=== PATIENT | female | born 1985 | race Caucasian/White ===

== ENCOUNTER → 2018-01-25 | Outpatient (CLI) | payer BC ==
[2018-01-25 17:47] LABS: Basophils % (A) 0 %; Eosinophils # (A) 0.2 k/uL (0-0.7); Eosinophils % (A) 2 %; HCT 40.9 % (34.0-46.0); HGB 13.4 gm/dL (11.4-16.0); Lymphocytes # (A) 2.7 k/uL (1.0-4.8); Lymphocytes % (A) 34 %; MCH 29.1 pg (25.0-35.0); MCHC 32.8 g/dL (31.0-37.0); MCV 88.5 fL (80.0-100.0); Mean Platelet Volume 6.6; Monocytes # (A) 0.3 k/uL (0-1.0); Monocytes % (A) 3 %; Neutrophils # (A) 4.8 k/uL (1.3-7.7); Neutrophils % (A) 59 %; Platelet Count 245 k/uL (150-450); RBC 4.62 m/uL (3.80-5.40); RDW 13.2 % (11.5-15.5); WBC 8.1 k/uL (3.8-10.6)
[2018-01-25 17:48] LABS: Blood Urea Nitrogen 23 mg/dL (7-17)
[2018-01-25 19:31] LABS: Erythrocyte Sedimentation Rate 7 mm/hr (0-20)
== END | disposition home or self-care (01) ==
LOC: LABWHC1 17:14
PROVIDERS: ATTEND Otolaryngology
DX: R21 Rash and other nonspecific skin eruption (principal)
CPT/HCPCS: 36415; 82565; 84520; 85025; 85652; 86038

== ENCOUNTER → 2019-01-14 | Outpatient (CLI) | payer BC ==
--- NOTE | 2019-01-14 19:37 | XR ---
EXAMINATION TYPE: XR cervical spine limited DATE OF EXAM: 01/14/2019 COMPARISON: NONE HISTORY: Pain TECHNIQUE: Four views are submitted. FINDINGS: The odontoid is intact. There are no compression deformities. The prevertebral soft tissue structur es are within normal limits. IMPRESSION: 1. No acute process. If symptoms persist MRI would be recommended.
--- NOTE | 2019-01-14 19:38 | XR ---
EXAMINATION TYPE: XR skull complete DATE OF EXAM: 01/14/2019 COMPARISON: NONE HISTORY: Pain TECHNIQUE: 4 views submitted FINDINGS: Osseous structures intact. No definite acute fracture. IMPRESSION: No acute osseous abnormality.
== END | disposition home or self-care (01) ==
LOC: RADXRMAIN 17:15
PROVIDERS: ATTEND Physician Assistant
DX: S09.90XA Unspecified injury of head, initial encounter (principal); M54.2 Cervicalgia
CPT/HCPCS: 70260; 72040

== ENCOUNTER → 2019-05-13 | Outpatient (CLI) | payer BC ==
--- NOTE | 2019-05-13 15:30 | US ---
EXAMINATION TYPE: US kidneys/renal and bladder DATE OF EXAM: 05/13/2019 COMPARISON: NONE CLINICAL HISTORY: N39.0 Urinary tract infection. Recurrent UTI, cardiac event monitor today. EXAM MEASUREMENTS: Right Kidney: 9.8 x 5.1 x 4.6 cm Left Kidney: 9.2 x 5.4 x 4.9 cm Post Void Residual Volume: 19.5 mL Right Kidney: No hydronephrosis or masses seen Left Kidney: No hydronephrosis or masses seen Bladder: wnl Bilateral Jets seen: yes Normal Post Void Residual: yes There is no evidence for hydronephrosis at this point in time. No nephrolithiasis is seen. No jaison s are identified. The urinary bladder is anechoic. Bilateral ureteral jets are seen. IMPRESSION: No hydronephrosis or nephrolithiasis. Urinary bladder appears anechoic and unremarkable.
== END | disposition home or self-care (01) ==
LOC: RADUSWWP 14:12
PROVIDERS: ATTEND Urology
DX: N39.0 Urinary tract infection, site not specified (principal); Z88.2 Allergy status to sulfonamides; Z91.013 Allergy to seafood
CPT/HCPCS: 76770

== ENCOUNTER → 2019-05-13 | Outpatient (CLI) | payer BC ==
--- NOTE | 2019-05-30 12:04 | EM ---
EVENT MONITOR A 14-day event monitor. There are multiple recordings available most of these are unremarkable sinus and some of them are sinus tachycardia. Then patient had some shortness of breath. Again, she was in sinus tachycardia and on auto capture, there was also sinus tachycardia with a rare isolated PVC. No significant arrhythmia was detected. Sinus rhythm and sinus tachycardia seems to be the predominant tracings available. IMPRESSION: Unremarkable event monitor with most recordings suggesting sinus rhythm or sinus tachycardia with one rare isolated PVC. MMODL / IJN: [id number] /
== END | disposition home or self-care (01) ==
LOC: RADECHMAIN 12:04
PROVIDERS: ATTEND Physician Assistant
DX: R55 Syncope and collapse (principal)
CPT/HCPCS: 93270; 93271

== ENCOUNTER 2020-11-23 06:05 | Inpatient (IN) | payer BC ==
[2020-11-15 15:37] VITALS: BMI 32.1
[2020-11-23] MEDS ORDERED: CITRIC ACID-SODIUM CITRATE 15 ML CUP PO ONE (06:14)
[2020-11-23] MEDS: LACTATED RINGERS 1,000 ML IV SCH ×3 (06:40→15:13)
[2020-11-23 06:51] LABS: Basophils % (A) 0 %; Eosinophils # (A) 0.2 k/uL (0-0.7); Eosinophils % (A) 1 %; HCT 35.6 % (34.0-46.0); HGB 12.4 gm/dL (11.4-16.0); Lymphocytes # (A) 2.5 k/uL (1.0-4.8); Lymphocytes % (A) 21 %; MCH 30.7 pg (25.0-35.0); MCHC 34.9 g/dL (31.0-37.0); MCV 88.1 fL (80.0-100.0); Mean Platelet Volume 7.3; Monocytes # (A) 0.5 k/uL (0-1.0); Monocytes % (A) 4 %; Neutrophils # (A) 8.7 k/uL (1.3-7.7); Neutrophils % (A) 73 %; Platelet Count 196 k/uL (150-450); RBC 4.04 m/uL (3.80-5.40); RDW 13.1 % (11.5-15.5)
[2020-11-23] MEDS ORDERED: MORPHINE SULFATE (PF) 0.3 MG/0.3 ML SYR ONE (08:00)
[2020-11-23] MEDS ORDERED: OXYTOCIN 10 UNIT/ML 1 ML VIAL ONE (08:00)
[2020-11-23] MEDS ORDERED: KETOROLAC 15 MG/ML 1 ML VIAL ONE (08:00)
[2020-11-23] MEDS ORDERED: ONDANSETRON 4 MG/2 ML VIAL ONE (08:00)
[2020-11-23] MEDS ORDERED: NALBUPHINE 10 MG/ML (1 ML AMP) ONE (08:00)
[2020-11-23] MEDS ORDERED: PHENYLEPHRINE-0.9% NACL SYG 1,000 MCG/10 ML SYRINGE ONE (08:00)
[2020-11-23] MEDS ORDERED: ZOLPIDEM 5 MG TAB PO PRN (08:40)
[2020-11-23] MEDS ORDERED: NALOXONE 0.4 MG/ML 1 ML VIAL IV PRN (08:40)
[2020-11-23] MEDS ORDERED: diphenhydrAMINE 50 MG/ML 1 ML VIAL IVP PRN ×2 (08:40)
[2020-11-23] MEDS ORDERED: diphenhydrAMINE 25 MG CAP PO PRN (08:40)
[2020-11-23] MEDS ORDERED: METOCLOPRAMIDE 5 MG/ML 2 ML VIAL IVP PRN (08:40)
[2020-11-23] MEDS ORDERED: diphenhydrAMINE 50 MG CAP PO PRN (08:40)
[2020-11-23] MEDS ORDERED: ONDANSETRON 4 MG/2 ML VIAL IVP PRN (08:40)
--- NOTE | 2020-11-23 08:43 | P.HPOB ---
History of Present Illness H&P Date: 11/23/20 Chief Complaint: repeat low transverse with TL 35 year old presents at 39 weeks 4 days for repeat low transverse with tubal ligation. Review of Systems All systems: negative Constitutional: Denies chills, Denies fever Eyes: denies blurred vision, denies pain Ears, nose, mouth and throat: Denies headache, Denies sore throat Cardiovascular: Denies chest pain, Denies shortness of breath Respiratory: Denies cough Gastrointestinal: Denies abdominal pain, Denies diarrhea, Denies nausea, Denies vomiting Genitourinary: Denies dysuria, Denies hematuria Musculoskeletal: Denies myalgias Integumentary: Denies pruritus, Denies rash Neurological: Denies numbness, Denies weakness Psychiatric: Denies anxiety, Denies depression Endocrine: Denies fatigue, Denies weight change Past Medical History Past Medical History: No Reported History 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 History of Any Multi-Drug Resistant Organisms: None Reported Past Surgical History: Section Past Anesthesia/Blood Transfusion Reactions: No Reported Reaction, Motion Sickne ss Past Psychological History: No Psychological Hx Reported Smoking Status: Former smoker Past Alcohol Use History: None Reported Past Drug Use History: None Reported - Past Family History Mother Family Medical History: Diabetes Mellitus Medications and Allergies Home Medications Medication Instructions Recorded Confirmed Type Acyclovir 400 mg PO DAILY PRN 11/15/20 11/15/20 History Ascorbic Acid/Elderberry Fruit 1 each PO DAILY 11/15/20 11/23/20 History [Elderberry-Vit C 50-100 mg Chw] Pnv No.95/Ferrous Fum/Folic AC 1 each PO DAILY 11/15/20 11/23/20 History [ Multivitamin Tablet] Zinc 17 mg PO DAILY 11/15/20 11/23/20 History Allergies Allergy/AdvReac Type Severity Reaction Status Date / Time Sulfa (Sulfonamide Allergy Unknown Verified 11/15/20 15:30 Antibiotics) sulfamethoxazole Allergy Rash/Hives Verified 11/23/20 06:11 [From Bactrim] trimethoprim [From Bactrim] Allergy Rash/Hives Verified 11/23/20 06:11 Exam Osteopathic Statement: *. No significant issues noted on an osteopathic structural exam other than those noted in the History and Physical/Consult. Vital Signs Temp Pulse Resp BP Pulse Ox 11/23/20 06:10 96.9 F L 114 H 16 125/75 98 Intake and Output 11/22/20 11/23/20 11/23/20 22:59 06:59 14:59 Other: Weight 85.275 kg Heart: Regular rate and rhythm Lungs: Clear to auscultation bilaterally Abdomen: Soft, nontender Extremities: Negative Homans sign Results Result Diagrams: 11/23/20 06:30 Abnormal Lab Results - Last 24 Hours (Table) 11/23/20 Range/Units 06:30 WBC 12.0 H (3.8-10.6) k/uL Neutrophils # 8.7 H (1.3-7.7) k/uL Assessment and Plan (1) Previous section Current Visit: Yes Status: Acute Code(s): Z98.891 - HISTORY OF UTERINE SCAR FROM PREVIOUS SURGERY SNOMED Code(s): 286911654 (2) Family planning Current Visit: Yes Status: Acute Code(s): Z30.09 - ENCOUNTER FOR OT GENERAL CNSL AND ADVICE ON CONTRACEPTION SNOMED Code(s): 555801662 Plan: 1. Repeat low transverse with tubal ligation
[2020-11-23] MEDS ORDERED: LACTATED RINGERS 1,000 ML IV SCH (08:45)
--- NOTE | 2020-11-23 08:45 | P.OP ---
Date of Procedure: 11/23/20 Preoperative Diagnosis: 1. at 39 weeks and 4 days 2. Previous section 3. Family planning Postoperative Diagnosis: 1. at 39 weeks and 4 days 2. Previous section 3. Family planning Procedure(s) Performed: Repeat low transverse with tubal ligation Anesthesia: spinal Surgeon: Jayleen Echevarria Beef Tagger #1: Pilo Fitch Estimated Blood Loss (ml): 400 IV fluids (ml): 1,000 Urine output (ml): 100 Pathology: none sent Condition: stable Disposition: floor Operative Findings: Normal uterus, tubes, ovaries. Description of Procedure: Patient was taken to the operating room where spinal anesthesia was found be adequate. She was prepped and draped in normal sterile fashion in dorsal supine position with a leftward tilt. Pfannenstiel skin incision was made the scalpel and carried through to the underlying layer of fascia with the scalpel. Fascia was incised in midline and carried bilaterally with the Dunbar scissors. The superior aspect of the fascial incision was grasped with Dina clamps elevated and the underlying rectus muscles dissected off with the Dunbar's. Attention was then turned to inferior aspect of same incision which in a similar fashion was grasped tented up and the underlying rectus muscles dissected off with the Dunbar's. The rectus muscles were the midline and the peritoneum was identified tented up and entered sharply with the scalpel. The incision was extended superiorly and inferiorly with good visualization of the bladder. The bladder blade was inserted and the vesicouterine peritoneum was incised the Metzenbaums then carried bilaterally and bladder flap created digitally. A low transverse incision was then made on the uterus with the scalpel. This was carried bilaterally and digital manner. Infant's head delivered atraumatically, nose and mouth bulb suctioned, cord clamped and cut, infant handed off to waiting nurses. Apgars 9,9, weight 8 lbs. 12 oz. Placenta delivered manually, intact with three-vessel cord. The uterus is exteriorized and cleared of all clots and debris. The uterine incision was closed with 0 Vicryl in a running locked fashion. Second layer of the same sutures used in imbricating fashion to obtain excellent hemostasis. Bladder flap was then reapproximated using 2-0 Vicryl in a running fashion. Both ovaries and tubes appeared normal. The left fallopian tube was grasped with a hemostat and a window was made in the mesosalpinx with the Bovie. The left fallopian tube was doubly ligated and a section was removed. The pedicles were cauterized with the Bovie. The right fallopian tube was grasped with hemostat and a window was made in the mesosalpinx with the Bovie. The right fallopian tube was doubly ligated and a section was removed. The pedicles were cauterized with the Bovie. The uterus was placed back into the abdomen. The peritoneum was reapproximated using 2-0 Vicryl in a running fashion. The muscles were reapproximated using 2-0 Vicryl in interrupted fashion. The fascia was reapproximated using 0 Vicryl in a running fashion. The subcutaneous tissues closed with 3-0 Vicryl running fashion. The skin was closed lan. Patient tolerated the procedure well, sponge and instrument counts were correct times 2 and she was taken to the recovery room in stable condition.
[2020-11-23] MEDS: ACETAMINOPHEN TAB 500 MG TAB PO SCH ×2 (13:23→19:54)
[2020-11-23] MEDS: KETOROLAC 15 MG/ML 1 ML VIAL IVP SCH ×2 (15:05→21:14)
[2020-11-23] MEDS: SENNOSIDES-DOCUSATE SODIUM 1 EACH TAB PO SCH (23:35)
[2020-11-24] MEDS: ACETAMINOPHEN TAB 500 MG TAB PO SCH ×3 (01:06→15:55)
[2020-11-24] MEDS: KETOROLAC 15 MG/ML 1 ML VIAL IVP SCH ×2 (03:30→10:56)
[2020-11-24 06:35] LABS: Basophils % (A) 0 %; Eosinophils # (A) 0.2 k/uL (0-0.7); Eosinophils % (A) 2 %; HCT 33.9 % (34.0-46.0); HGB 11.6 gm/dL (11.4-16.0); Lymphocytes # (A) 1.7 k/uL (1.0-4.8); Lymphocytes % (A) 16 %; MCH 30.5 pg (25.0-35.0); MCHC 34.2 g/dL (31.0-37.0); MCV 89.3 fL (80.0-100.0); Mean Platelet Volume 7.1; Monocytes # (A) 0.4 k/uL (0-1.0); Monocytes % (A) 4 %; Neutrophils # (A) 8.1 k/uL (1.3-7.7); Neutrophils % (A) 77 %; Platelet Count 167 k/uL (150-450); RBC 3.79 m/uL (3.80-5.40); WBC 10.5 k/uL (3.8-10.6)
--- NOTE | 2020-11-24 07:01 | P.PNOBGPC ---
Subjective - Subjective Patient reports: Reports appetite normal, Reports voiding normally, Reports pain well controlled, Reports ambulating normally : doing well Objective - Vital Signs Latest vital signs: Vital Signs Temp Pulse Resp BP Pulse Ox 11/24/20 04:00 98.2 F 69 17 116/68 99 11/23/20 23:54 98.1 F 75 16 118/76 98 11/23/20 20:00 98.2 F 96 16 120/81 99 11/23/20 16:00 98.3 F 104 H 16 109/72 96 11/23/20 12:00 98.0 F 105 H 16 119/66 99 11/23/20 10:48 102 H 16 117/60 96 11/23/20 10:18 105 H 16 109/67 96 11/23/20 09:48 108 H 16 125/70 97 11/23/20 09:33 114 H 16 110/57 96 11/23/20 09:18 117 H 16 108/59 96 11/23/20 09:03 118 H 16 114/68 96 11/23/20 08:48 96.9 F L 112 H 16 121/67 99 Intake and Output 11/23/20 11/23/20 11/24/20 14:59 22:59 06:59 Intake Total 300 Output Total 600 2850 Balance -300 -2850 Intake: Oral 300 Output: Urine 2700 Uretheral (Power) 800 Emesis 200 150 Estimated Blood Loss 400 Other: Voiding Method Indwelling Catheter Indwelling Catheter # Voids 1 1 - Exam Lungs: bilateral: normal Chest: Normal S1, Normal S2 Extremities: Present: normal Abdomen: Present: normal appearance, soft. Absent: distention, tenderness Incision: Present: normal, dry, intact Uterus: Present: normal, firm - Labs Labs: Abnormal Lab Results - Last 24 Hours (Table) 11/24/20 Range/Units 06:10 RBC 3.79 L (3.80-5.40) m/uL Hct 33.9 L (34.0-46.0) % Neutrophils # 8.1 H (1.3-7.7) k/uL Assessment and Plan Assessment: Postoperative day #1. Patient is resting without complaints. Vital signs are stable and she is afebrile. Uterus is firm nontender and her incision is intact and dry. I impression today's this is a normal postoperative course. Hemoglobin is normal. Plan today is to encourage ambulation, allow the patient to shower, and advance her diet. (1) Status post delivery Current Visit: Yes Status: Acute Code(s): Z98.891 - HISTORY OF UTERINE SCAR FROM PREVIOUS SURGERY SNOMED Code(s): 118290078
[2020-11-24] MEDS: SENNOSIDES-DOCUSATE SODIUM 1 EACH TAB PO SCH ×2 (08:00→21:30)
[2020-11-24 09:59] VITALS: RESP 16
[2020-11-24] MEDS ORDERED: IBUPROFEN 600 MG TAB PO SCH (13:00)
[2020-11-24] MEDS: IBUPROFEN 600 MG TAB PO SCH ×2 (14:15→21:30)
[2020-11-25] MEDS: ACETAMINOPHEN TAB 500 MG TAB PO SCH ×2 (01:07→06:26)
[2020-11-25] MEDS: IBUPROFEN 600 MG TAB PO SCH (08:06)
[2020-11-25] MEDS: SENNOSIDES-DOCUSATE SODIUM 1 EACH TAB PO SCH (08:06)
--- NOTE | 2020-11-25 08:18 | P.PNOBGPC ---
Subjective - Subjective Patient reports: Reports appetite normal, Reports voiding normally, Reports pain well controlled, Reports ambulating normally : doing well Objective - Vital Signs Latest vital signs: Vital Signs Temp Pulse Resp BP Pulse Ox 11/25/20 00:00 98.4 F 76 16 123/76 99 11/24/20 16:00 98.1 F 94 16 109/65 98 Intake and Output 11/24/20 11/25/20 11/25/20 22:59 06:59 14:59 Output Total 400 Balance -400 Output: Estimated Blood Loss 400 Other: # Voids 1 2 - Exam Lungs: bilateral: normal Chest: Normal S1, Normal S2 Extremities: Present: normal Abdomen: Present: normal appearance, soft. Absent: distention, tenderness Incision: Present: normal, dry, intact Uterus: Present: normal, firm Assessment and Plan Assessment: Postoperative day #2. Patient is resting without complaints and wishes to go home. Vital signs are stable she is afebrile. Uterus is firm nontender and her incision is intact and dry. I impression this is a normal postoperative course. Plan is to continue routine postoperative care and discharge home today (1) Status post delivery Current Visit: Yes Status: Acute Code(s): Z98.891 - HISTORY OF UTERINE SCAR FROM PREVIOUS SURGERY SNOMED Code(s): 107020927
--- NOTE | 2020-11-25 08:26 | P.DS ---
Providers Date of admission: 11/23/20 06:05 Expected date of discharge: 11/25/20 Attending physician: Jayleen Echevarria Primary care physician: Stated None - Discharge Diagnosis(es) (1) Status post delivery Current Visit: Yes Status: Acute Hospital Course: Please see dictated H&P per Dr. Echevarria on this patient's admission and delivery. Brief summary this is a pleasant 35-year-old 4 para 1 female admitted at 39-4/7 weeks gestation for elective repeat section and tubal ligation. Patient undergoes above-named surgery for viable female infant. Please see dictated operative note. Postoperative 2 patient's felt be stable for discharge home follow Dr. Echevarria 1 week. Procedures: Repeat low transverse section and bilateral partial salpingectomy Plan - Discharge Summary Discharge Rx Participant: No New Discharge Prescriptions: New Ibuprofen [Motrin] 600 mg PO Q6H #30 tab oxyCODONE HCL [OxyIR] 5 mg PO Q4HR PRN #18 tab PRN Reason: Pain No Action Pnv No.95/Ferrous Fum/Folic AC [ Multivitamin Tablet] 1 each PO DAILY Ascorbic Acid/Elderberry Fruit [Elderberry-Vit C 50-100 mg Chw] 1 each PO DAILY Zinc 17 mg PO DAILY Acyclovir 400 mg PO DAILY PRN PRN Reason: Cold Sores Discharge Medication List Acyclovir 400 mg PO DAILY PRN 11/15/20 [History] Ascorbic Acid/Elderberry Fruit [Elderberry-Vit C 50-100 mg Chw] 1 each PO DAILY 11/15/20 [History] Pnv No.95/Ferrous Fum/Folic AC [ Multivitamin Tablet] 1 each PO DAILY 11/15/20 [History] Zinc 17 mg PO DAILY 11/15/20 [History] Ibuprofen [Motrin] 600 mg PO Q6H #30 tab 11/25/20 [Rx] oxyCODONE HCL [OxyIR] 5 mg PO Q4HR PRN #18 tab 11/25/20 [Rx] Follow up Appointment(s)/Referral(s): Jayleen Echevarria DO [Doctor of Osteopathic Medicine] - 12/03/20 9:30 am (Please see Dr. Echevarria on January 11 at 345 as well for a check.) Patient Instructions/Handouts: (DC) Activity/Diet/Wound Care/Special Instructions: No strenuous activities or heavy lifting for 6 weeks. Please call if any fever, chills, excessive vaginal bleeding, and/or abdominal pain. Discharge Disposition: HOME SELF-CARE
[2020-11-25 08:41] VITALS: BP 120/77; PULSE 89; TEMP 98.5
--- NOTE | 2020-11-25 18:53 | P.PN ---
Progress Note - Text Date:11/24/20 Time:1151 Patient is status post . Patient seen this morning with VAS score of 2.no c/o of pruritus, no c/o nausea/vomiting, comfortable and doing well.
== END 2020-11-25 11:24 | disposition home or self-care (01) | DRG 785 ==
LOC: 4FBP 06:05
PROVIDERS: ADMIT Obstetrics & Gynecology; ATTEND Obstetrics & Gynecology
PROC: 0UB70ZZ Excision of Bilateral Fallopian Tubes, Open Approach (ICD-10-PCS; principal; 2020-11-23 08:00)
PROC: 10D00Z1 Extraction of Products of Conception, Low, Open Approach (ICD-10-PCS; principal; 2020-11-23 08:00)
DX: O34.211 Maternal care for low transverse scar from previous cesarean delivery (principal); Z37.0 Single live birth; Z3A.39 39 weeks gestation of pregnancy; Z30.2 Encounter for sterilization; Z83.3 Family history of diabetes mellitus; Z87.891 Personal history of nicotine dependence
CPT/HCPCS: 85025; 86803; 86850; 86900; 86901; 88302

== ENCOUNTER → 2024-07-14 | Outpatient (CLI) | payer BC ==
--- NOTE | 2024-07-14 12:13 | US ---
EXAMINATION TYPE: US abdomen complete DATE OF EXAM: 07/14/2024 COMPARISON: Renal ultrasound 05/13/2019 CLINICAL INDICATION: Female, 39 years old with history of R10.11 RUQ PAIN; TECHNIQUE: Grayscale and color Doppler imaging of the abdomen was performed. FINDINGS: EXAM MEASUREMENTS: Liver Length: 16.2 cm Gallbladder Wall: 0.2 cm CBD: 0.4 cm, color Doppler imaging was utilized to isolate the common bile duct for measurement. Spleen: 10.2 cm Right Kidney: 10.1x4.3x5.8 cm Left Kidney: 10.2x5.8x5.6 cm [employer]IST NOTES: Pancreas: Tail obscured by overlying bowel gas Liver: no abnormalities seen Gallbladder: No stones seen Evidence for sonographic Peterson's sign: No CBD: wnl Spleen: wnl Right Kidney: No hydronephrosis or masses seen Left Kidney: No hydronephrosis or masses seen Upper IVC: wnl Abd Aorta: wnl IMPRESSION: Unremarkable abdominal ultrasound. [facility], , 07/14/2024 12:11 PM
== END | disposition home or self-care (01) ==
LOC: RADUSWWP 08:26
PROVIDERS: ATTEND Family Medicine
DX: R10.11 Right upper quadrant pain (principal)
CPT/HCPCS: 76700